=== PATIENT | female | born 1980 | race Caucasian/White ===

== ENCOUNTER 2016-10-01 05:24 | Emergency (ER) | payer OTHER ==
[~2016-10-01] VITALS: Ht 160 cm; Wt 69.1 kg
[2016-10-01 05:29] VITALS: BP 131/90
[2016-10-01] MEDS ORDERED: DIPH,PERTUSS(ACELL),TET VAC/PF 0.5 ML IM-VACC ONE ×3 (06:00→06:14)
[2016-10-01] MEDS ORDERED: OXYcodone/APAP 5/325MG TABLET PO ONE (06:00)
[2016-10-01] MEDS ORDERED: OXYcodone/APAP 5/325MG TABLET ONE (06:00)
== END 2016-10-01 10:07 | disposition home or self-care (01) ==
LOC: ED 05:30
DX: S01.01XA Laceration without foreign body of scalp, initial encounter (principal); S01.311A Laceration without foreign body of right ear, initial encounter; Y08.89XA Assault by other specified means, initial encounter; Y93.89 Activity, other specified; Y92.410 Unspecified street and highway as the place of occurrence of the external cause; Y99.9 Unspecified external cause status
CPT/HCPCS: 12001; 12011; 70450; 70486; 72125; 90471; 90715

== ENCOUNTER → 2018-05-08 | Outpatient (CLI) | payer OTHER | END | disposition home or self-care (01) | LOC: CFH 11:47 | PROVIDERS: ATTEND Physician Assistant | DX: N60.01 Solitary cyst of right breast (principal); Z80.3 Family history of malignant neoplasm of breast | CPT/HCPCS: 77065 ==

== ENCOUNTER 2019-08-08 15:58 | Outpatient (CLI) | payer OTHER | END 2019-08-08 23:59 | disposition home or self-care (01) | LOC: CFH 15:58 | PROVIDERS: ATTEND Physician Assistant | DX: Z12.31 Encounter for screening mammogram for malignant neoplasm of breast (principal); N63.0 Unspecified lump in unspecified breast | CPT/HCPCS: 77063; 77067 ==

== ENCOUNTER 2020-11-11 15:21 | Outpatient (CLI) | payer BC | END 2020-11-11 23:59 | disposition home or self-care (01) | LOC: CFH 15:21 | PROVIDERS: ATTEND Physician Assistant | DX: Z12.31 Encounter for screening mammogram for malignant neoplasm of breast (principal) ==